=== PATIENT | female | born 1955 | race Caucasian/White ===

== ENCOUNTER 2018-05-31 06:00 | Day surgery (SDC) | payer OTHER ==
[2018-05-31] MEDS ORDERED: LIDOCAINE 4% SOLUTION 50 ML BTL (07:33)
[2018-05-31] MEDS ORDERED: FENTAnyl 50 MCG/ML VIAL (08:13)
[2018-05-31] MEDS ORDERED: MIDAZOLAM 1 MG/ML 2 ML INJ ×2 (08:14)
== END 2018-05-31 13:45 | disposition home or self-care (01) ==
LOC: GIL 06:00
DX: Z12.11 Encounter for screening for malignant neoplasm of colon (principal); K64.1 Second degree hemorrhoids; K29.50 Unspecified chronic gastritis without bleeding; K29.80 Duodenitis without bleeding
CPT/HCPCS: 43239; 88305; 88312